=== PATIENT | female | born 1985 | race Caucasian/White ===

== ENCOUNTER 2016-09-15 05:02 | Emergency (ER) | payer MEDICAID ==
[2016-09-15 06:20] LABS: ABSOLUTE EOSINOPHILS # (AUTO) 0.1 10^3/uL (0.0-0.6); ABSOLUTE LYMPHOCYTES (AUTO) 2.2 10^3/uL (0.5-4.7); ABSOLUTE MONOCYTES (AUTO) 0.8 10^3/uL (0.1-1.4); ABSOLUTE NEUT (AUTO) 8.4 10^3/uL (1.7-8.2); BASOPHILS % (AUTO) 0.4 % (0-2); EOSINOPHILS % (AUTO) 0.7 % (0-6); HEMATOCRIT 38.3 % (36.0-47.0); HEMOGLOBIN 12.1 g/dL (12.0-15.5); LYMPHOCYTES % (AUTO) 19.3 % (13-45); MEAN CORPUSCULAR HEMOGLOBIN 22.3 pg (27.0-33.4); MEAN CORPUSCULAR HGB CONC 31.7 g/dL (32.0-36.0); MEAN CORPUSCULAR VOLUME 70 fl (80-97); MONOCYTES % (AUTO) 6.5 % (3-13); RED BLOOD COUNT 5.44 10^6/uL (3.72-5.28); RED CELL DISTRIBUTION WIDTH 17.4 % (11.5-14.0); SEGMENTED NEUTROPHILS % (AUTO) 73.1 % (42-78); WHITE BLOOD COUNT 11.5 10^3/uL (4.0-10.5)
[2016-09-15 06:37] LABS: ALANINE AMINOTRANSFERASE 22 U/L (9-52); ALBUMIN 4.3 g/dL (3.5-5.0); ALKALINE PHOSPHATASE 97 U/L (38-126); ANION GAP 13 (5-19); ASPARTATE AMINO TRANSFERASE 14 U/L (14-36); BILIRUBIN,TOTAL 0.4 mg/dL (0.2-1.3); BLOOD UREA NITROGEN 15 mg/dL (7-20); CARBON DIOXIDE 24 mmol/L (22-30); CHLORIDE 104 mmol/L (98-107); CREATININE RESULT 0.78 mg/dL (0.52-1.25); GLUCOSE 94 mg/dL (75-110); LIPASE 138.3 U/L (23-300); POTASSIUM 4.2 mmol/L (3.6-5.0); TOTAL PROTEIN 7.6 g/dL (6.3-8.2)
[2016-09-15 06:52] LABS: APPEARANCE,URINE TURBID; BILIRUBIN,URINE NEGATIVE (NEGATIVE); GLUCOSE, URINE NEGATIVE (NEGATIVE); KETONES,URINE NEGATIVE (NEGATIVE); LEUKOCYTE ESTERASE,URINE LARGE (NEGATIVE); NITRITE,URINE NEGATIVE (NEGATIVE); PROTEIN,URINE NEGATIVE (NEGATIVE); URINE SPECIFIC GRAVITY 1.033; UROBILINOGEN,URINE NEGATIVE mg/dL (<2.0)
--- NOTE | 2016-09-15 07:37 | ER Document Report ---
ED General - General Chief Complaint: Nausea/Vomiting/Diarrhea Stated Complaint: LOWER BACK/FLANK PAIN TRAVEL OUTSIDE OF THE [place] IN LAST 30 DAYS: No - HPI Patient complains to provider of: nausea vomiting diarrhea low back pain flank pain Notes: Patient coming in for the above stated symptoms ongoing for the last 4 days. Patient states family members sick with similar symptoms nausea vomiting diarrhea patient also states recently was treated for UTI with Augmentin. Patient states symptoms worsen after finishing up her Augmentin. Patient denies fevers denies chills. On any room patient is well hydrated alert and oriented nontoxic looking - Related Data Allergies/Adverse Reactions: adhesive tape Allergy (Severe, Verified 09/09/15 12:20) azithromycin [From Zithromax] Allergy (Severe, Verified 09/09/15 12:20) Fainting, N&V miconazole nitrate [From Monistat 3] Allergy (Severe, Verified 09/09/15 12:20) Abdominal pain, vaginal bleeding cephalexin monohydrate [From Keflex] Allergy (Verified 09/09/15 12:20) erythromycin base Allergy (Verified 09/09/15 12:20) latex [Latex] Allergy (Verified 09/09/15 12:20) sulfamethoxazole [From Septra DS] Allergy (Verified 09/09/15 12:20) trimethoprim [From Septra DS] Allergy (Verified 09/09/15 12:20) NSAIDS (Non-Steroidal Anti-Inflamma [Nsaids] Adverse Reaction (Verified 12:20) upset stomach Past Medical History - Social History Smoking Status: Unknown if Ever Smoked Frequency of alcohol use: None Drug Abuse: None Family History: Arthritis, CAD, CVA, DM, Hyperlipidemia, Hypertension, Malignancy, Thyroid Disfunction Patient has suicidal ideation: No Patient has homicidal ideation: No Pulmonary Medical History: Reports: Hx Asthma, Hx Bronchitis, Hx Pneumonia Neurological Medical History: Denies: Hx Seizures Endocrine Medical History: Reports: Hx Diabetes Mellitus Type 2 - GESTATIONAL DM , Hx Hypothyroidism - with this , no meds Renal/ Medical History: Reports: Hx Ovarian Cysts - Rt ovary. Denies: Hx Peritoneal Dialysis Malignancy Medical History: Reports: Hx Cervical Cancer - per patient, has not had it checked? GI Medical History: Reports: Hx Crohn's Disease - per pt diagnosed here via CT scan, Hx Gastroesophageal Reflux Disease - With Musculoskeltal Medical History: Reports Hx Musculoskeletal Deformity, Reports Hx Musculoskeletal Trauma Psychiatric Medical History: Reports: Hx Anxiety, Hx Depression Traumatic Medical History: Reports: Hx Fractures - Lt wrist ankle Past Surgical History: Reports: Hx Section - X 3, Hx Hysterectomy, Hx Tubal Ligation - Immunizations Immunizations up to date: Yes Hx Diphtheria, Pertussis, Tetanus Vaccination: Yes Hx Pneumococcal Vaccination: 08/16/00 Review of Systems - Review of Systems Constitutional: No symptoms reported EENT: No symptoms reported Cardiovascular: No symptoms reported Respiratory: No symptoms reported Gastrointestinal: Abdominal pain, Diarrhea, Nausea, Vomiting Genitourinary: No symptoms reported Female Genitourinary: No symptoms reported Musculoskeletal: No symptoms reported Skin: No symptoms reported Hematologic/Lymphatic: No symptoms reported Neurological/Psychological: No symptoms reported -: Yes All other systems reviewed and negative Physical Exam - Vital signs Vitals: Temp Pulse Resp BP Pulse Ox 98.4 F 92 19 118/81 98 09/15/16 05:41 09/15/16 05:41 09/15/16 05:41 09/15/16 05:41 09/15/16 05:41 Interpretation: Normal - General General appearance: Appears well, Alert - HEENT Head: Normocephalic, Atraumatic Eyes: Normal Pupils: PERRL - Respiratory Respiratory status: No respiratory distress Chest status: Nontender Breath sounds: Normal Chest palpation: Normal - Cardiovascular Rhythm: Regular Heart sounds: Normal auscultation Murmur: No - Abdominal Inspection: Normal Distension: No distension Bowel sounds: Normal Tenderness: Nontender Organomegaly: No organomegaly - Back Back: Normal, Nontender - Extremities General upper extremity: Normal inspection, Nontender, Normal color, Normal ROM , Normal temperature General lower extremity: Normal inspection, Nontender, Normal color, Normal ROM , Normal temperature, Normal weight bearing. No: Jackeline's sign - Neurological Neuro grossly intact: Yes Cognition: Normal Orientation: AAOx4 [place] Coma Scale Eye Opening: Spontaneous [place] Coma Scale Verbal: Oriented [place] Coma Scale Motor: Obeys Commands Mayela Coma Scale Total: 15 Speech: Normal Motor strength normal: LUE, RUE, LLE, RLE Sensory: Normal - Psychological Associated symptoms: Normal affect, Normal mood - Skin Skin Temperature: Warm Skin Moisture: Dry Skin Color: Normal Course - Re-evaluation Re-evalutation: 09/15/16 14:16 The patient presents with n/v/d without signs of peritonitis or other life- threatening or serious etiology. The patient appears stable for discharge and has been instructed to return immediately if the symptoms worsen in any way, or in 8-12hr if not improved for re-evaluation. The patient has been instructed to return if the symptoms worsen or change in any way.. 09/15/16 14:17 Urine shows no signs of UTI - Vital Signs Vital signs: Temp Pulse Resp BP Pulse Ox 98.4 F 79 17 117/72 98 09/15/16 05:41 09/15/16 07:45 09/15/16 07:45 09/15/16 07:45 09/15/16 07:45 - Laboratory Result Diagrams: 09/15/16 05:51 09/15/16 05:51 Laboratory results interpreted by me: 09/15/16 09/15/16 05:51 05:51 WBC 11.5 H RBC 5.44 H MCV 70 L MCH 22.3 L MCHC 31.7 L RDW 17.4 H Absolute Neutrophils 8.4 H Ur Leukocyte Esterase LARGE H Discharge - Discharge Clinical Impression: Nausea vomiting and diarrhea Condition: Good Disposition: HOME, SELF-CARE Instructions: Vomiting ([facility]), Diarrhea, Nonspecific ([facility]), Gastroenteritis ( adult) ([facility]) Additional Instructions: Your laboratory studies today show no signs of infection. More likely your symptoms are due to recent use of Augmentin or possible viral etiology. I would recommend trying to eat some yogurt to help with the diarrhea. We will give you medication for the nausea and vomiting. Zofran and Phenergan. You may take Tylenol and Motrin for your body aches and pains. Drink plenty of water as that your lab work does show some slight dehydration. Prescriptions: Miscellaneous Medication [Happy Hiney Cream] 1 applic TOP ASDIR PRN #60 gm PRN Reason: Ondansetron [Zofran Odt 4 mg Tablet] 1 - 2 tab PO Q4H PRN #20 tab.rapdis PRN Reason: For Nausea/Vomiting Promethazine HCl [Phenergan 25 mg Tablet] 1 - 2 tab PO Q6H PRN #20 tablet PRN Reason: Referrals: VICTORIA MI NP [Primary Care Provider] - Follow up as needed
[2016-09-15 07:46] VITALS: BP 117/72
== END 2016-09-15 07:44 | disposition home or self-care (01) ==
LOC: ER 05:02
DX: R11.2 Nausea with vomiting, unspecified (principal); R19.7 Diarrhea, unspecified; M54.5 Low back pain; R10.9 Unspecified abdominal pain; J45.909 Unspecified asthma, uncomplicated; Z87.440 Personal history of urinary (tract) infections; Z91.048 Other nonmedicinal substance allergy status; Z88.1 Allergy status to other antibiotic agents; Z88.3 Allergy status to other anti-infective agents; Z91.040 Latex allergy status; Z87.19 Personal history of other diseases of the digestive system; Z90.710 Acquired absence of both cervix and uterus; Z98.51 Tubal ligation status; Z87.42 Personal history of other diseases of the female genital tract; Z85.41 Personal history of malignant neoplasm of cervix uteri
CPT/HCPCS: 36415; 80053; 81001; 81025; 83690; 85025; 87086; 87088; 87186; 99284

== ENCOUNTER 2016-10-04 16:44 | Emergency (ER) | payer MEDICAID ==
--- NOTE | 2016-10-04 17:46 | ER Document Report ---
ED Medical Screen (RME) - General Stated Complaint: WEAKNESS,FAST HEARTBEAT Mode of Arrival: Ambulatory Information source: Patient Notes: Patient states she was digging a hole and started to have tachycardia. Patient states that her heart rate was 163 bpm. Patient claims of sinus congestion and cough for the past 5 days. Patient is also concerned that she may have a UTI. hx: Crohn's I have greeted and performed a rapid initial assessment of this patient. A comprehensive ED assessment and evaluation of the patient, analysis of test results and completion of the medical decision making process will be conducted by additional ED providers. TRAVEL OUTSIDE OF THE [place] IN LAST 30 DAYS: No - Related Data Allergies/Adverse Reactions: adhesive tape Allergy (Severe, Verified 09/09/15 12:20) azithromycin [From Zithromax] Allergy (Severe, Verified 09/09/15 12:20) Fainting, N&V miconazole nitrate [From Monistat 3] Allergy (Severe, Verified 09/09/15 12:20) Abdominal pain, vaginal bleeding cephalexin monohydrate [From Keflex] Allergy (Verified 09/09/15 12:20) erythromycin base Allergy (Verified 09/09/15 12:20) latex [Latex] Allergy (Verified 09/09/15 12:20) sulfamethoxazole [From Septra DS] Allergy (Verified 09/09/15 12:20) trimethoprim [From Septra DS] Allergy (Verified 09/09/15 12:20) NSAIDS (Non-Steroidal Anti-Inflamma [Nsaids] Adverse Reaction (Verified 12:20) upset stomach Past Medical History - Social History Family history: Reviewed & Not Pertinent Pulmonary Medical History: Reports: Hx Asthma, Hx Bronchitis, Hx Pneumonia Neurological Medical History: Denies: Hx Seizures Endocrine Medical History: Reports: Hx Diabetes Mellitus Type 2 - GESTATIONAL DM , Hx Hypothyroidism - with this , no meds Renal/ Medical History: Reports: Hx Ovarian Cysts - Rt ovary. Denies: Hx Peritoneal Dialysis Malignancy Medical History: Reports: Hx Cervical Cancer - per patient, has not had it checked? GI Medical History: Reports: Hx Crohn's Disease - per pt diagnosed here via CT scan, Hx Gastroesophageal Reflux Disease - With Musculoskeltal Medical History: Reports Hx Musculoskeletal Deformity, Reports Hx Musculoskeletal Trauma Psychiatric Medical History: Reports: Hx Anxiety, Hx Depression Traumatic Medical History: Reports: Hx Fractures - Lt wrist ankle Past Surgical History: Reports: Hx Section - X 3, Hx Hysterectomy, Hx Tubal Ligation - Immunizations Immunizations up to date: Yes Hx Diphtheria, Pertussis, Tetanus Vaccination: Yes Physical Exam - Vital signs Vitals: Temp Pulse Resp BP Pulse Ox 98.2 F 96 18 121/74 100 10/04/16 17:08 10/04/16 17:08 10/04/16 17:08 10/04/16 17:08 10/04/16 17:08 - Cardiovascular Rhythm: Regular. No: Tachycardia Heart sounds: S1 appreciated, S2 appreciated Course - Vital Signs Vital signs: Temp Pulse Resp BP Pulse Ox 98.2 F 96 18 121/74 100 10/04/16 17:08 10/04/16 17:08 10/04/16 17:08 10/04/16 17:08 10/04/16 17:08
[2016-10-04 18:32] LABS: ABSOLUTE BASOPHILS # (AUTO) 0.1 10^3/uL (0.0-0.2); ABSOLUTE LYMPHOCYTES (AUTO) 1.5 10^3/uL (0.5-4.7); ABSOLUTE MONOCYTES (AUTO) 0.4 10^3/uL (0.1-1.4); ABSOLUTE NEUT (AUTO) 7.3 10^3/uL (1.7-8.2); BASOPHILS % (AUTO) 0.7 % (0-2); EOSINOPHILS % (AUTO) 0.3 % (0-6); HEMATOCRIT 35.3 % (36.0-47.0); HEMOGLOBIN 11.2 g/dL (12.0-15.5); HGB HCT DIFFERENCE -1.7; LYMPHOCYTES % (AUTO) 16.2 % (13-45); MEAN CORPUSCULAR HEMOGLOBIN 22.5 pg (27.0-33.4); MEAN CORPUSCULAR HGB CONC 31.9 g/dL (32.0-36.0); MEAN CORPUSCULAR VOLUME 71 fl (80-97); MONOCYTES % (AUTO) 4.8 % (3-13); RED CELL DISTRIBUTION WIDTH 17.1 % (11.5-14.0); WHITE BLOOD COUNT 9.3 10^3/uL (4.0-10.5)
[2016-10-04 18:39] LABS: APPEARANCE,URINE CLEAR; BILIRUBIN,URINE NEGATIVE (NEGATIVE); GLUCOSE, URINE NEGATIVE (NEGATIVE); KETONES,URINE NEGATIVE (NEGATIVE); LEUKOCYTE ESTERASE,URINE NEGATIVE (NEGATIVE); NITRITE,URINE NEGATIVE (NEGATIVE); PROTEIN,URINE NEGATIVE (NEGATIVE); URINE SPECIFIC GRAVITY 1.001; UROBILINOGEN,URINE NEGATIVE mg/dL (<2.0)
[2016-10-04 18:48] LABS: ALANINE AMINOTRANSFERASE 25 U/L (9-52); ALBUMIN 4.3 g/dL (3.5-5.0); ALKALINE PHOSPHATASE 114 U/L (38-126); ANION GAP 12 (5-19); ASPARTATE AMINO TRANSFERASE 14 U/L (14-36); BILIRUBIN,TOTAL 0.4 mg/dL (0.2-1.3); BLOOD UREA NITROGEN 9 mg/dL (7-20); CALCIUM 9.7 mg/dL (8.4-10.2); CARBON DIOXIDE 23 mmol/L (22-30); CHLORIDE 103 mmol/L (98-107); CREATININE RESULT 0.76 mg/dL (0.52-1.25); GLUCOSE 91 mg/dL (75-110); POTASSIUM 4.3 mmol/L (3.6-5.0); SODIUM 137.5 mmol/L (137-145); TOTAL PROTEIN 6.9 g/dL (6.3-8.2)
[2016-10-04 18:52] LABS: URINE BARBITURATES SCREEN NEGATIVE; URINE METHADONE SCREEN NEGATIVE; URINE OPIATES LOW NEGATIVE; URINE PHENCYCLIDINE SCREEN NEGATIVE
--- NOTE | 2016-10-04 20:25 | ER Document Report ---
ED General - General Chief Complaint: Weakness Stated Complaint: WEAKNESS,FAST HEARTBEAT Mode of Arrival: Ambulatory Notes: Patient is a 31-year-old female without past medical history who presents with an episode of palpitations. States that she was digging a hole in her backyard she suddenly felt that her heart was going very quickly. She used a home pulse oximeter which told that her heart rate was at167. States that she sat down on her couch and drank some water and that it decreased down to 120. Admits that she had not eaten or drank anything all day. States the time my assessment that her symptoms have resolved and she now denies any complaints. Denies a history of similar symptoms in the past. She has not seen her primary care physician regarding today's concerns. Denies any chest pain, shortness of breath, pleuritic pain, hemoptysis, or history of DVT or pulmonary embolus. TRAVEL OUTSIDE OF THE [place] IN LAST 30 DAYS: No - Related Data Allergies/Adverse Reactions: adhesive tape Allergy (Severe, Verified 10/04/16 17:46) azithromycin [From Zithromax] Allergy (Severe, Verified 02 17:46) Fainting, N&V miconazole nitrate [From Monistat 3] Allergy (Severe, Verified 10/04/16 17:46) Abdominal pain, vaginal bleeding cephalexin monohydrate [From Keflex] Allergy (Verified 02 17:46) erythromycin base Allergy (Verified 10/04/16 17:46) latex [Latex] Allergy (Verified 10/04/16 17:46) sulfamethoxazole [From Septra DS] Allergy (Verified 10/04/16 17:46) trimethoprim [From Septra DS] Allergy (Verified 10/04/16 17:46) NSAIDS (Non-Steroidal Anti-Inflamma [Nsaids] Adverse Reaction (Verified 17:46) upset stomach Past Medical History - General Information source: Patient - Social History Smoking Status: Current Every Day Smoker Chew tobacco use (# tins/day): No Frequency of alcohol use: None Drug Abuse: None Lives with: Spouse/Significant other Family History: Arthritis, CAD, CVA, DM, Hyperlipidemia, Hypertension, Malignancy, Thyroid Disfunction Patient has suicidal ideation: No Patient has homicidal ideation: No Pulmonary Medical History: Reports: Hx Asthma, Hx Bronchitis, Hx Pneumonia Neurological Medical History: Denies: Hx Seizures Endocrine Medical History: Reports: Hx Diabetes Mellitus Type 2 - GESTATIONAL DM , Hx Hypothyroidism - with this , no meds Renal/ Medical History: Reports: Hx Ovarian Cysts - Rt ovary. Denies: Hx Peritoneal Dialysis Malignancy Medical History: Reports: Hx Cervical Cancer - per patient, has not had it checked? GI Medical History: Reports: Hx Crohn's Disease - per pt diagnosed here via CT scan, Hx Gastroesophageal Reflux Disease - With Musculoskeltal Medical History: Reports Hx Musculoskeletal Deformity, Reports Hx Musculoskeletal Trauma Psychiatric Medical History: Reports: Hx Anxiety, Hx Depression Traumatic Medical History: Reports: Hx Fractures - Lt wrist ankle Past Surgical History: Reports: Hx Section - X 3, Hx Hysterectomy, Hx Tubal Ligation - Immunizations Immunizations up to date: Yes Hx Diphtheria, Pertussis, Tetanus Vaccination: Yes Hx Pneumococcal Vaccination: 08/16/00 Review of Systems - Review of Systems Notes: Constitutional: Negative for fever. HENT: Negative for sore throat. Eyes: Negative for visual changes. Cardiovascular: Negative for chest pain. Positive for palpitations Respiratory: Negative for shortness of breath. Gastrointestinal: Negative for abdominal pain, vomiting or diarrhea. Genitourinary: Negative for dysuria. Musculoskeletal: Negative for back pain. Skin: Negative for rash. Neurological: Negative for headaches, weakness or numbness. 10 point ROS negative except as marked above and in HPI. Physical Exam - Vital signs Vitals: Temp Pulse Resp BP Pulse Ox 98.2 F 96 18 121/74 100 10/04/16 17:08 10/04/16 17:08 10/04/16 17:08 10/04/16 17:08 10/04/16 17:08 Interpretation: Normal Notes: PHYSICAL EXAMINATION: GENERAL: Well-appearing, well-nourished and in no acute distress. HEAD: Atraumatic, normocephalic. EYES: Pupils equal round and reactive to light, extraocular movements intact, sclera anicteric, conjunctiva are normal. ENT: nares patent, oropharynx clear without exudates. Moist mucous membranes. NECK: Normal range of motion, supple without lymphadenopathy LUNGS: Breath sounds clear to auscultation bilaterally and equal. No wheezes rales or rhonchi. HEART: Regular rate and rhythm without murmurs ABDOMEN: Soft, nontender, normoactive bowel sounds. No guarding, no rebound. No masses appreciated. EXTREMITIES: Normal range of motion, no pitting or edema. No cyanosis. NEUROLOGICAL: No focal neurological deficits. Moves all extremities spontaneously and on command. PSYCH: Normal mood, normal affect. SKIN: Warm, Dry, normal turgor, no rashes or lesions noted. Course - Re-evaluation Re-evalutation: 10/04/16 20:23 Patient presents with palpitations earlier today but is in no acute distress at this time. Vitals within normal limits at time of arrival. EKG unremarkable with a normal sinus rhythm. Laboratories are unremarkable. Patient denies any chest pain, shortness of breath, or vomiting. At this time based on exam and history do not suspect a new onset arrhythmia, ACS, acute pulmonary embolus, aortic dissection. Patient encouraged to follow-up with her primary care physician as well as cardiology and a referral has been provided. At this time will discharge with return precautions and follow-up recommendations. Verbal discharge instructions given a the bedside and opportunity for questions given. Medication warnings reviewed. Patient is in agreement with this plan and has verbalized understanding of return precautions and the need for primary care follow-up in the next 24-72 hours. - Vital Signs Vital signs: Temp Pulse Resp BP Pulse Ox 97 F L 89 16 115/78 100 10/04/16 20:35 10/04/16 20:35 10/04/16 20:35 10/04/16 20:35 10/04/16 20:35 - Laboratory Result Diagrams: 10/04/16 18:05 10/04/16 18:05 Laboratory results interpreted by me: 10/04/16 18:05 Hgb 11.2 L Hct 35.3 L MCV 71 L MCH 22.5 L MCHC 31.9 L RDW 17.1 H - Diagnostic Test Radiology reviewed: Image reviewed, Reports reviewed Radiology results interpreted by me: 10/04/16 20:23 Chest x-ray: No acute infiltrate - EKG Interpretation by Me Additional EKG results interpreted by me: 10/04/16 20:24 Normal sinus rhythm. Rate 80. No ST elevations or depressions. QTc is 397. Discharge - Discharge Clinical Impression: Palpitations Condition: Good Disposition: HOME, SELF-CARE Additional Instructions: Please follow-up closely with cardiology regarding your palpitations. Your labs and EKG are normal today. Return if you pass out, have shortness of breath , persistent vomiting, develop significant chest pain, or have any other symptoms that are concerning to you.
[2016-10-04 20:36] VITALS: BP 115/78
--- NOTE | 2016-10-04 21:53 | EKG REPORT ---
SEVERITY:- BORDERLINE ECG - SINUS RHYTHM BORDERLINE T ABNORMALITIES, DIFFUSE LEADS : Confirmed by: Nela To 04-Oct-2016 21:53:03
== END 2016-10-04 20:36 | disposition home or self-care (01) ==
LOC: ER 16:44
DX: R00.0 Tachycardia, unspecified (principal); J45.909 Unspecified asthma, uncomplicated; F17.200 Nicotine dependence, unspecified, uncomplicated; Z91.048 Other nonmedicinal substance allergy status; Z88.1 Allergy status to other antibiotic agents; Z88.3 Allergy status to other anti-infective agents; Z91.040 Latex allergy status; Z82.49 Family history of ischemic heart disease and other diseases of the circulatory system
CPT/HCPCS: 36415; 71020; 80053; 80307; 81001; 84443; 84703; 85025; 93005; 93010; 99285

== ENCOUNTER 2016-12-29 09:10 | Emergency (ER) | payer MEDICAID ==
--- NOTE | 2016-12-29 09:53 | ER Document Report ---
ED GI/ - General Chief Complaint: Flank Pain Stated Complaint: BACK PAIN/MOUTH PAIN Time Seen by Provider: 12/29/16 09:47 Notes: 31-year-old female with 2 days of some right flank pain and some dysuria. She denies any fevers, vomiting, or vaginal discharge. Patient states she has had a bilateral tubal ligation. Patient denies any cough, or shortness of breath. She denies any history of kidney stones. Patient states she has had multiple UTIs in the past. Patient also complains of some "mouth ulcers" that she has had for the last 2 days. She denies any sore throat. She denies any difficulty swallowing or breathing. She denies any and all abdominal pain. TRAVEL OUTSIDE OF THE [place] IN LAST 30 DAYS: No - HPI Patient complains to provider of: Other - See above Onset: Other - See above Quality of pain: Dull Severity at maximum: Mild Severity in ED: Mild Pain Level: Denies Context: Other - See above Location: Other - See above Vaginal bleeding (Compared to normal period): None Sexual history: Active Associated symptoms: Other - See above Exacerbated by: Other - Urinating Relieved by: Denies Similar symptoms previously: Yes Recently seen / treated by doctor: No - Related Data Allergies/Adverse Reactions: adhesive tape Allergy (Severe, Verified 12/29/16 09:14) azithromycin [From Zithromax] Allergy (Severe, Verified 12/29/16 09:14) Fainting, N&V miconazole nitrate [From Monistat 3] Allergy (Severe, Verified 12/29/16 09:14) Abdominal pain, vaginal bleeding cephalexin monohydrate [From Keflex] Allergy (Verified 12/29/16 09:14) erythromycin base Allergy (Verified 12/29/16 09:14) latex [Latex] Allergy (Verified 12/29/16 09:14) sulfamethoxazole [From Septra DS] Allergy (Verified 12/29/16 09:14) trimethoprim [From Septra DS] Allergy (Verified 12/29/16 09:14) NSAIDS (Non-Steroidal Anti-Inflamma [Nsaids] Adverse Reaction (Verified 09:14) upset stomach Past Medical History - General Information source: Patient - Social History Smoking Status: Unknown if Ever Smoked Cigarette use (# per day): No Chew tobacco use (# tins/day): No Smoking Education Provided: No Frequency of alcohol use: None Drug Abuse: None Family History: Arthritis, CAD, CVA, DM, Hyperlipidemia, Hypertension, Malignancy, Thyroid Disfunction Patient has suicidal ideation: No Patient has homicidal ideation: No Pulmonary Medical History: Reports: Hx Asthma, Hx Bronchitis, Hx Pneumonia Neurological Medical History: Denies: Hx Seizures Endocrine Medical History: Reports: Hx Diabetes Mellitus Type 2 - GESTATIONAL DM , Hx Hypothyroidism - with this , no meds Renal/ Medical History: Reports: Hx Ovarian Cysts - Rt ovary. Denies: Hx Peritoneal Dialysis Malignancy Medical History: Reports: Hx Cervical Cancer - per patient, has not had it checked? GI Medical History: Reports: Hx Crohn's Disease - per pt diagnosed here via CT scan, Hx Gastroesophageal Reflux Disease - With Musculoskeltal Medical History: Reports Hx Musculoskeletal Deformity, Reports Hx Musculoskeletal Trauma Psychiatric Medical History: Reports: Hx Anxiety, Hx Depression Traumatic Medical History: Reports: Hx Fractures - Lt wrist ankle Past Surgical History: Reports: Hx Section - X 3, Hx Hysterectomy, Hx Tubal Ligation - Immunizations Immunizations up to date: Yes Hx Diphtheria, Pertussis, Tetanus Vaccination: Yes Hx Pneumococcal Vaccination: 08/16/00 Review of Systems - Review of Systems Constitutional: denies: Chills, Fever Respiratory: denies: Cough, Short of breath Gastrointestinal: denies: Vomiting Genitourinary: Dysuria Female Genitourinary: denies: Skin: Other - no hives. denies: Rash Neurological/Psychological: Other - no slurred speech -: Yes All other systems reviewed and negative Physical Exam - Vital signs Vitals: Temp Pulse Resp BP Pulse Ox 98.9 F 99 16 112/85 97 12/29/16 09:14 12/29/16 09:14 12/29/16 09:14 12/29/16 09:14 12/29/16 09:14 Interpretation: Normal Notes: Reviewed vital signs and nursing note as charted by RN. CONSTITUTIONAL: Alert and oriented and responds appropriately to questions. Well -appearing; well-nourished HEAD: Normocephalic; atraumatic ENT: Normal nose; no rhinorrhea; moist mucous membranes; patient has 2 small aphthous ulcers, one to the inner lip and one today under part of the left lateral tongue. RESP: Normal chest excursion without splinting or tachypnea; breath sounds clear and equal bilaterally ABD/GI: Normal bowel sounds; non-distended; soft, non-tender to deep palpation of all 4 quadrants of the abdomen BACK: The back appears normal and is non-tender to palpation along the midline spine. Patient has no obvious CVA tenderness upon percussion. No erythema or back swelling. EXT: Normal ROM in all joints; non-tender to palpation; no cyanosis, no effusions, no edema SKIN: Normal color for age and race; warm; dry; good turgor; capillary refill < 2 seconds; no acute lesions noted NEURO: Moves all extremities equally; Motor and sensory function intact PSYCH: The patient's mood and manner are appropriate. Grooming and personal hygiene are appropriate. Course - Re-evaluation Re-evalutation: 12/29/16 09:51 Given the history and physical examination with no nausea, vomiting, fevers, with some dysuria, with no tenderness to palpation of all 4 quadrants of the abdomen, I will obtain a urinalysis. I believe the ulcers to the lip and tongue are simply viral in nature. 12/29/16 10:28 Urinalysis as recorded. Patient still has no tenderness to deep palpation of the abdomen or percussion of the flank. Urine culture has been sent. I will start the patient on a 5 day course of Levaquin given her Bactrim and Keflex allergies. Strict return precautions have been explained. - Vital Signs Vital signs: Temp Pulse Resp BP Pulse Ox 98.9 F 99 16 112/85 97 12/29/16 09:14 12/29/16 09:14 12/29/16 09:14 12/29/16 09:14 12/29/16 09:14 - Laboratory Laboratory results interpreted by me: 12/29/16 09:35 Ur Leukocyte Esterase SMALL H Discharge - Discharge Clinical Impression: Right flank discomfort UTI (urinary tract infection) Qualifiers: Urinary tract infection type: site unspecified Hematuria presence: without hematuria Qualified Code(s): N39.0 - Urinary tract infection, site not specified Condition: Good Disposition: HOME, SELF-CARE Additional Instructions: Come back immediately with any abdominal pain, increased back pain, fevers or vomiting, or any other acute problems. Please take the antibiotics as prescribed and follow-up with the primary care provider for reassessment of his urinalysis and the urine culture. Prescriptions: Levofloxacin 500 mg PO DAILY #5 tablet
[2016-12-29 10:25] LABS: APPEARANCE,URINE SLIGHTLY-CLOUDY; BILIRUBIN,URINE NEGATIVE (NEGATIVE); GLUCOSE, URINE NEGATIVE (NEGATIVE); KETONES,URINE NEGATIVE (NEGATIVE); LEUKOCYTE ESTERASE,URINE SMALL (NEGATIVE); NITRITE,URINE NEGATIVE (NEGATIVE); PROTEIN,URINE NEGATIVE (NEGATIVE); URINE SPECIFIC GRAVITY 1.021; UROBILINOGEN,URINE NEGATIVE mg/dL (<2.0)
[2016-12-29] MEDS ORDERED: LEVOFLOXACIN 500 MG TABLET PO ONE (10:27)
[2016-12-29 10:48] VITALS: BP 116/74
== END 2016-12-29 10:45 | disposition home or self-care (01) ==
LOC: ER 09:10
DX: N39.0 Urinary tract infection, site not specified (principal); R10.9 Unspecified abdominal pain; M54.9 Dorsalgia, unspecified; K08.89 Other specified disorders of teeth and supporting structures; R30.0 Dysuria
CPT/HCPCS: 99284; 87086; 81001; J3490

== ENCOUNTER 2017-01-02 09:12 | Emergency (ER) | payer MEDICAID ==
[2017-01-02] MEDS ORDERED: MAG HYDROX/AL HYDROX/SIMETH SUSP 30 ML UDCUP PO ONE ×2 (09:53→10:15)
[2017-01-02] MEDS ORDERED: METOCLOPRAMIDE HCL ORAL SOLN 10 MG/10 ML UDCUP PO ONE (09:53)
[2017-01-02] MEDS ORDERED: LIDOCAINE 2% VISCOUS SOLN 20 ML UDCUP PO ONE (09:53)
[2017-01-02] MEDS ORDERED: FAMOTIDINE 20 MG TABLET PO ONE (09:53)
--- NOTE | 2017-01-02 09:54 | ER Document Report ---
HPI - HPI Patient complains to provider of: heartburn Pain Level: 5 Context: Patient is a 31-year-old female who returns emergency department after initial evaluation on December 29 for back pain right upper quadrant pain and esophageal/ gastric discomfort. Patient was sent home on antibiotics for urinary tract infection at this time. Patient states that her symptoms have not improved. Today patient states that she has been having difficulty eating due to severe esophageal gastric burning whenever she eats. She states it gets worse with acidic foods. Patient states that she does have a known history of esophageal reflux that she does not take any medications for this. Past medical history significant for possibility of Crohn's disease the patient has been noncompliant with follow-up with gastroenterology. Past surgical history significant for 3. - REPRODUCTIVE Reproductive: DENIES: : - DERM Skin Color: Normal Past Medical History - Social History Smoking Status: Unknown if Ever Smoked Family History: Arthritis, CAD, CVA, DM, Hyperlipidemia, Hypertension, Malignancy, Thyroid Disfunction Patient has suicidal ideation: No Patient has homicidal ideation: No Pulmonary Medical History: Reports: Hx Asthma, Hx Bronchitis, Hx Pneumonia Neurological Medical History: Denies: Hx Seizures Endocrine Medical History: Reports: Hx Diabetes Mellitus Type 2 - GESTATIONAL DM , Hx Hypothyroidism - with this , no meds Renal/ Medical History: Reports: Hx Ovarian Cysts - Rt ovary. Denies: Hx Peritoneal Dialysis Malignancy Medical History: Reports: Hx Cervical Cancer - per patient, has not had it checked? GI Medical History: Reports: Hx Crohn's Disease - per pt diagnosed here via CT scan, Hx Gastroesophageal Reflux Disease - With Musculoskeltal Medical History: Reports Hx Musculoskeletal Deformity, Reports Hx Musculoskeletal Trauma Psychiatric Medical History: Reports: Hx Anxiety, Hx Depression Traumatic Medical History: Reports: Hx Fractures - Lt wrist ankle Past Surgical History: Reports: Hx Section - X 3, Hx Hysterectomy, Hx Tubal Ligation - Immunizations Immunizations up to date: Yes Hx Diphtheria, Pertussis, Tetanus Vaccination: Yes Hx Pneumococcal Vaccination: 08/16/00 Vertical Provider Document - CONSTITUTIONAL Agree With Documented VS: Yes Exam Limitations: No Limitations Notes: PHYSICAL EXAM GENERAL: Alert, interacts well. HEAD: Normocephalic, atraumatic. EYES: Pupils equal, round, and reactive to light. Extraocular movements intact. ENT: Oral mucosa moist, tongue midline. NECK: Full range of motion. Supple. Trachea midline. LUNGS: Clear to auscultation bilaterally, no wheezes, rales, or rhonchi. No respiratory distress. HEART: Regular rate and rhythm. No murmurs, gallops, or rubs. ABDOMEN: Soft, nondistended, nontender. No guarding, rebound, or rigidity.. Bowel sounds present in all 4 quadrants. EXTREMITIES: Moves all 4 extremities spontaneously. No edema, radial and dorsalis pedis pulses 2/4 bilaterally. No cyanosis. NEUROLOGICAL: Alert and oriented x4. Normal speech. PSYCH: Normal affect, normal mood. SKIN: Warm, dry, normal turgor. No rashes or lesions noted. - INFECTION CONTROL TRAVEL OUTSIDE OF THE [place] IN LAST 30 DAYS: No - RESPIRATORY O2 Sat by Pulse Oximetry: 98 Course - Re-evaluation Re-evalutation: 01/02/17 17:23 Patient is a 31-year-old female who is hemodynamic stable, no acute distress and afebrile. Benign history and physical exam findings for any acute abdominal pathology. Patient's presentation consistent with esophageal reflux which patient states she has a history of but does not take any medication for. declining full GI cocktail. States she will only take the Pepcid and Maalox. Will discharge patient home on Prilosec and can follow-up with her primary care physician. - Vital Signs Vital signs: Temp Pulse Resp BP Pulse Ox 98.1 F 99 18 119/82 98 01/02/17 09:16 01/02/17 09:16 01/02/17 09:16 01/02/17 09:16 01/02/17 09:16 Discharge - Discharge Clinical Impression: Heartburn Condition: Good Disposition: HOME, SELF-CARE Instructions: Reflux Disease (GERD) ([facility]), Prilosec (Acid Pump Inhibitor) ([facility]) Prescriptions: Omeprazole Magnesium [Prilosec Otc] 20 mg PO DAILY #30 tablet. Referrals: AGUSTO HDZ MD [[facility]UNITY BASED STAFF] - Follow up in 1 month
[2017-01-02 10:35] VITALS: BP 121/80
== END 2017-01-02 10:35 | disposition home or self-care (01) ==
LOC: ER 09:12
DX: R12 Heartburn (principal); J45.909 Unspecified asthma, uncomplicated; Z87.19 Personal history of other diseases of the digestive system
CPT/HCPCS: 99283; J3490 ×4

== ENCOUNTER 2017-01-08 17:13 | Emergency (ER) | payer MEDICAID ==
[2017-01-08 17:26] VITALS: BP 112/73
--- NOTE | 2017-01-08 17:48 | ER Document Report ---
HPI - HPI Patient complains to provider of: abscess Onset: Last week Quality of pain: Achy Severity: Severe Pain Level: 5 Context: Patient presents emergency department with complaints of abscess to her left inner thigh. Patient reports it started reports it started last week. She reports today while she was at her child's school the area popped open and drained. She reports she went home and squeezed it. Reports it feels warm and she thinks she has a fever. Denies history of MRSA. She has had this before and it has never been MRSA. Associated Symptoms: None Exacerbated by: Denies Relieved by: Denies Similar symptoms previously: Yes Recently seen / treated by doctor: No - REPRODUCTIVE Reproductive: DENIES: : - DERM Skin Color: Normal Past Medical History - General Information source: Patient Last Menstrual Period: current - Social History Smoking Status: Unknown if Ever Smoked Cigarette use (# per day): No Frequency of alcohol use: None Drug Abuse: None Lives with: Family Family History: Arthritis, CAD, CVA, DM, Hyperlipidemia, Hypertension, Malignancy, Thyroid Disfunction Patient has suicidal ideation: No Patient has homicidal ideation: No Pulmonary Medical History: Reports: Hx Asthma, Hx Bronchitis, Hx Pneumonia Neurological Medical History: Denies: Hx Seizures Endocrine Medical History: Reports: Hx Hypothyroidism - with this , no meds Renal/ Medical History: Reports: Hx Ovarian Cysts - Rt ovary. Denies: Hx Peritoneal Dialysis Malignancy Medical History: Reports: Hx Cervical Cancer - per patient, has not had it checked? GI Medical History: Reports: Hx Crohn's Disease - per pt diagnosed here via CT scan, Hx Gastroesophageal Reflux Disease - With Musculoskeltal Medical History: Reports Hx Musculoskeletal Deformity, Reports Hx Musculoskeletal Trauma Psychiatric Medical History: Reports: Hx Anxiety, Hx Depression Traumatic Medical History: Reports: Hx Fractures - Lt wrist ankle Past Surgical History: Reports: Hx Section - X 3, Hx Hysterectomy, Hx Tubal Ligation - Immunizations Immunizations up to date: Yes Hx Diphtheria, Pertussis, Tetanus Vaccination: Yes Hx Pneumococcal Vaccination: 08/16/00 Vertical Provider Document - CONSTITUTIONAL Agree With Documented VS: Yes Exam Limitations: No Limitations General Appearance: WD/WN, Mild Distress - winces when site palpated - INFECTION CONTROL TRAVEL OUTSIDE OF THE [place] IN LAST 30 DAYS: No - HEENT HEENT: Atraumatic, Normocephalic - NECK Neck: Supple - RESPIRATORY Respiratory: No Respiratory Distress O2 Sat by Pulse Oximetry: 97 - MUSCULOSKELETAL/EXTREMETIES Musculoskeletal/Extremeties: LONG BRUCE - NEURO Level of Consciousness: Awake, Alert, Appropriate Motor/Sensory: No Motor Deficit - DERM Integumentary: Abscess - left inner thigh, open area noted ~ 1 cm with drainage , culture obtained, surrounded by erythemana, no induration, not fluctuant Course - Re-evaluation Re-evalutation: 01/08/17 The abscess is already open and drained. Time it does not need an I & d. Pt was instructed on Cleocin. Instructed to return the emergency department should the area get bigger. Patient was also instructed on the importance of keeping it clean warm packs as indicated. She verbalized understanding to all instructions. - Vital Signs Vital signs: Temp Pulse Resp BP Pulse Ox 99.7 F 110 H 16 112/73 97 01/08/17 17:24 01/08/17 17:24 01/08/17 17:24 01/08/17 17:24 01/08/17 17:24 Discharge - Discharge Clinical Impression: Abscess Condition: Stable Disposition: HOME, SELF-CARE Instructions: Abscess ([facility]), Clindamycin ([facility]), Warm Packs ([facility]) Additional Instructions: *You have been treated for an abscess *A culture has been done, you will contacted should you need different antibiotics *Take medication as prescribed *Take tylenol as indicated for pain *Monitor the site for signs of increasing infection such as increasing pain, redness, swelling, warmth *Keep the site cleaned, warm packs to the area *Follow up with your primary care provider Wednesday for recheck *Return to ED for signs of infection, worsening condition,changes, needs, concerns Prescriptions: Clindamycin HCl [Cleocin 300 mg Capsule] 300 mg PO BID #20 capsule
== END 2017-01-08 17:59 | disposition home or self-care (01) ==
LOC: ER 17:13
DX: L02.416 Cutaneous abscess of left lower limb (principal)
CPT/HCPCS: 87070; 87075; 87077; 87186; 87205; 99282

== ENCOUNTER 2019-01-06 16:58 | Emergency (ER) | payer MEDICAID | END 2019-01-06 17:48 | disposition left against medical advice (07) | LOC: ER 16:58 | DX: Z53.21 Procedure and treatment not carried out due to patient leaving prior to being seen by health care provider (principal) ==

== ENCOUNTER 2019-09-12 20:19 | Emergency (ER) | payer OTHER, MEDICAID ==
[2019-09-12 20:53] VITALS: BP 126/74
[2019-09-12] MEDS ORDERED: IBUPROFEN 800 MG TABLET PO ONE (20:58)
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
== END 2019-09-12 21:58 | disposition home or self-care (01) ==
LOC: ER 20:19
DX: S16.1XXA Strain of muscle, fascia and tendon at neck level, initial encounter (principal); M54.5 Low back pain; M54.9 Dorsalgia, unspecified; M54.2 Cervicalgia; V87.7XXA Person injured in collision between other specified motor vehicles (traffic), initial encounter; F17.210 Nicotine dependence, cigarettes, uncomplicated; J45.909 Unspecified asthma, uncomplicated; E11.9 Type 2 diabetes mellitus without complications
CPT/HCPCS: 99283

== ENCOUNTER 2020-07-06 06:14 | Emergency (ER) | payer MEDICAID ==
[2020-07-06 06:43] VITALS: BP 116/74
== END 2020-07-06 07:26 | disposition left against medical advice (07) ==
LOC: ER 06:14
DX: Z53.21 Procedure and treatment not carried out due to patient leaving prior to being seen by health care provider (principal)

== ENCOUNTER 2020-09-02 13:51 | Emergency (ER) | payer MEDICAID ==
[2020-09-02 14:13] VITALS: BP 113/68
--- NOTE | 2020-09-02 14:19 | ER Document Report ---
ED Foreign Body - General Chief Complaint: Foreign Body in Ear Stated Complaint: EAR PROBLEM Time Seen by Provider: 09/02/20 14:13 Primary Care Provider: BENJAMIN BARILLAS PA-C [Primary Care Provider] - Follow up as needed Mode of Arrival: Ambulatory Information source: Patient Notes: 35-year-old female presented to ED for complaint of swelling in her left ear. She states she got part of the and out of her ear but she was not sure if she got all of the and out. I did examine both ears there are no parts of aunts in either ear. There is no redness there is no inflammation there is no swelling in either ear. She does have minimal nasal drainage and some postnasal drip. Constitutional: Negative for fever. HENT: Negative for sore throat. Eyes: Negative for visual changes. Cardiovascular: Negative for chest pain. Respiratory: Negative for shortness of breath. Gastrointestinal: Negative for abdominal pain, vomiting or diarrhea. Genitourinary: Negative for dysuria. Musculoskeletal: Negative for back pain. Skin: Negative for rash. Neurological: Negative for headaches, weakness or numbness. 10 point ROS negative except as marked above and in HPI. VITAL SIGNS: Within normal limits. GENERAL: No acute distress, non-toxic appearance. HEAD: Normal with no signs of head trauma. EYES: PERRLA, EOMI, conjunctiva normal, no discharge. EARS: Hearing grossly intact. NOSE: Normal. THROAT: Oropharynx is normal. NECK: Normal range of motion, no tenderness, supple, no lymphadenopathy, No adenopathy, no JVD. CHEST: Clear breath sounds bilaterally. No wheezes, rales, or rhonchi. CARDIAC: Regular rate and rhythm. S1 and S2, without murmurs, gallops, or rubs. VASCULAR: No Edema. Peripheral pulses normal and equal in all extremities. ABDOMEN: Normal and soft with no tenderness, no masses or pulsatile masses. GASTROINTESTINAL: Bowel sounds normal GENITOURINARY: Normal, No tenderness LYMPATHTIC: No lymphadenopathy noted. MUSCULOSKELETAL: Good range of motion of all major joints. Extremities without clubbing, cyanosis or edema. NEUROLOGICAL: Alert and oriented x 3. No focal sensory or strength deficits. Speech normal. Follows commands appropriately. PSYCHIATRIC: Normal Affect, judgement and mood. SKIN: Normal appearance with no rashes or lesions. TRAVEL OUTSIDE OF THE [place] IN LAST 30 DAYS: No - HPI Location of foreign body: Other - Patient removed the aunt from her left ear Onset: Just prior to arrival Onset/Duration: Gone Quality of pain: No pain Severity: None Associated symptoms: None Exacerbated by: Denies Relieved by: Denies Similar symptoms previously: No Recently seen / treated by doctor: No - Related Data Allergies/Adverse Reactions: adhesive tape Allergy (Severe, Verified 07/06/20 06:54) azithromycin [From Zithromax] Allergy (Severe, Verified 07/06/20 06:54) Fainting, N&V miconazole nitrate [From Monistat 3] Allergy (Severe, Verified 07/06/20 06:54) Abdominal pain, vaginal bleeding cephalexin monohydrate [From Keflex] Allergy (Verified 07/06/20 06:54) erythromycin base Allergy (Verified 07/06/20 06:54) latex [Latex] Allergy (Verified 07/06/20 06:54) sulfamethoxazole [From Septra DS] Allergy (Verified 07/06/20 06:54) trimethoprim [From Septra DS] Allergy (Verified 07/06/20 06:54) Past Medical History - General Information source: Patient - Social History Smoking Status: Former Smoker Frequency of alcohol use: None Drug Abuse: None Lives with: Alone - Children Family History: Arthritis, CAD, CVA, DM, Hyperlipidemia, Hypertension, Malignancy, Thyroid Disfunction Patient has suicidal ideation: No Patient has homicidal ideation: No - Past Medical History Cardiac Medical History: Reports: None Pulmonary Medical History: Reports: Hx Asthma, Hx Bronchitis, Hx Pneumonia EENT Medical History: Reports: None Neurological Medical History: Reports: None Endocrine Medical History: Reports: Hx Diabetes Mellitus Type 2 - GESTATIONAL DM, Hx Hypothyroidism - with this , no meds Renal/ Medical History: Reports: Hx Ovarian Cysts - Rt ovary Malignancy Medical History: Reports: Hx Cervical Cancer - per patient, has not had it checked? GI Medical History: Reports: Hx Crohn's Disease - per pt diagnosed here via CT scan, Hx Gastroesophageal Reflux Disease - With Musculoskeletal Medical History: Reports Hx Musculoskeletal Deformity, Reports Hx Musculoskeletal Trauma Skin Medical History: Reports None Psychiatric Medical History: Reports: Hx Anxiety, Hx Depression Traumatic Medical History: Reports: Hx Fractures - Lt wrist ankle Infectious Medical History: Reports: None Past Surgical History: Reports: Hx Section - X 3, Hx Tubal Ligation - Immunizations Immunizations up to date: Yes Hx Diphtheria, Pertussis, Tetanus Vaccination: Yes - 2014 Hx Pneumococcal Vaccination: 08/16/00 Physical Exam - Vital signs Vitals: Temp Pulse Resp BP Pulse Ox 98.8 F 78 16 113/68 100 09/02/20 14:09 09/02/20 14:09 09/02/20 14:09 09/02/20 14:09 09/02/20 14:09 Course - Vital Signs Vital signs: Temp Pulse Resp BP Pulse Ox 98.8 F 78 16 113/68 100 09/02/20 14:09 09/02/20 14:09 09/02/20 14:09 09/02/20 14:09 09/02/20 14:09 - Laboratory Results Critical Laboratory Results Reviewed: No Critical Results - Radiology Results Critical Radiology Results Reviewed: No Critical Results Discharge - Discharge Clinical Impression: Concern for a bug in the ear, No blood found in the ear Condition: Stable Disposition: HOME, SELF-CARE Additional Instructions: You were seen today for concern of a bug in your left ear. Stated you we removed part of it and and you wanted to be sure all of the ant was removed from your left ear There are no and parts in your left ear Acetaminophen Acetaminophen may be taken for pain relief or fever control. It's much safer than aspirin, offering a wider range of "safe" dosages. It is safe during . Some brand names are Tylenol, Panadol, Datril, Anacin 3, Tempra, and Liquiprin. Acetaminophen can be repeated every four hours. The following are maximum recommended dosages: WEIGHT Dose Drops Elixir Chewable(80mg) (LBS.) drprs=droppers tsp=teaspoon 6 40 mg .4 ml (1/2) 6-11 80 mg .8 ml (full) 1/2 tsp 1 tab 12-16 120 mg 1 1/2 drprs 3/4 tsp 1 1/2 tabs 17-23 160 mg 2 drprs 1 tsp 2 tabs 24-30 240 mg 3 drprs 1 1/2 tsp 3 tabs 30-35 320 mg 2 tsp 4 tabs 36-41 360 mg 2 1/4 tsp 4 1/2 tabs 42-47 400 mg 2 1/2 tsp 5 tabs 48-53 480 mg 3 tsp 6 tabs 54-59 520 mg 3 1/4 tsp 6 1/2 tabs 60-64 560 mg 3 1/2 tsp 7 tabs 65-70 600 mg 3 3/4 tsp 7 1/2 tabs 71-76 640 mg 4 tsp 8 tabs 77-82 720 mg 4 1/2 tsp 9 tabs 83-88 800 mg 5 tsp 10 tabs >89 pounds or adults 650 mg to 900 mg Acetaminophen can be repeated every four hours. Maximum daily dose not to exceed 4000 mg. These maximum recommended dosages are slightly higher than the dosages written on the product container, but these dosages are very safe and well below the toxic dosage for acetaminophen. FOLLOW-UP CARE: If you have been referred to a physician for follow-up care, call the physicians office for an appointment as you were instructed or within the next two days. If you experience worsening or a significant change in your symptoms, notify the physician immediately or return to the Emergency Department at any time for re-evaluation. Referrals: BENJAMIN BARILLAS PA-C [Primary Care Provider] - Follow up as needed
== END 2020-09-02 14:22 | disposition home or self-care (01) ==
LOC: ER 13:51
DX: Z03.89 Encounter for observation for other suspected diseases and conditions ruled out (principal)
CPT/HCPCS: 99282